=== PATIENT | male | born 1955 | race Caucasian/White ===

== ENCOUNTER → 2019-02-20 21:56 | Outpatient (CLI) | payer MEDICARE ==
[~2019-02-20 21:56] MED LIST: COLESTID1 GM PO; COZAAR100 MG PO; FLOMAX0.4 MG PO; GEMFIBROZIL600 MG PO; GLIMEPIRIDE2 MG PO; GLUCOPHAGE1000 MG PO; METOPROLOL TART50 MG PO; NEURONTIN 300300 MG PO; NORVASC5 MG PO; OMEPRAZOLE20 M1 PO
[2019-02-28 07:02] VITALS: BMI 314.1
== END | disposition home or self-care (01) ==
LOC: D.LABREF 21:56
PROVIDERS: ATTEND Urology
DX: D72.829 Elevated white blood cell count, unspecified (principal)

== ENCOUNTER 2019-02-28 06:12 | Day surgery (SDC) | payer MEDICARE, OTHER ==
[2019-02-26 12:21] LABS: HEMATOCRIT 41.5 % (42.0-54.0); HEMOGLOBIN 14.3 g/dL (13.5-17.5); MCH 30.1 pg (26.0-34.0); MCHC 34.5 g/dL (31.0-37.0); MCV 87.4 fL (80.0-100.0); RBC 4.75 10x6/uL (4.20-6.10); RDW 13.1 % (11.5-14.5); WBC 5.3 10x3/uL (4.8-10.8)
[2019-02-26 12:33] LABS: ANION GAP 16.4 mmol/L (8-16); CARBON DIOXIDE 22.9 mmol/L (21.0-32.0); CREATININE - SERUM 1.1 mg/dL (0.6-1.3); POTASSIUM - SERUM 4.3 mmol/L (3.5-5.1)
[~2019-02-28] VITALS: Ht 170.2 cm; Wt 90.7 kg
[2019-02-28 07:02] VITALS: BP 140/91; Ht 170.2 cm; Wt 90.7 kg
--- NOTE | 2019-02-28 10:15 | NUR ---
REC'D FROM SURGERY. FAMILY AT BEDSIDE. WANTS TO GO AND URINATE. ASSISTED TO THE BATHROOM.
--- NOTE | 2019-02-28 10:45 | NUR ---
STILL IN THE BATHROOM. BLOOD IN THE TOILET HOWEVER RELATES HE REALLY NEEDS TO GO BUT DOES NOT FEEL HE URINATED.
--- NOTE | 2019-02-28 11:05 | OP ---
PATIENT NAME: KENNETH KINGSLEY MEDICAL RECORD: [id number] :51 LOCATION:D.[facility] ADMISSION DATE: SURGEON: CLAUDY RODRIGUES MD DATE OF OPERATION: 02/28/2019 SURGEON: Claudy Rodrigues MD ANESTHESIA: TIVA by Ander Santos CRNA. DIAGNOSIS: Obstructive benign prostatic hyperplasia. PSA is 2.4, EDY shows a 40 gram prostate. IPSS is 23. Quality of life score is 6 on tamsulosin. PROCEDURE: UroLift x6 units deployed, 5 held. FINDINGS: Bilateral lateral lobe obstruction. Moderate sized median lobe. Trabeculated bladder without bladder tumors. Single ureteral orifices bilaterally. ESTIMATED BLOOD LOSS: None. CLINICAL HISTORY: This is a 63-year-old male, who has obstructive voiding symptoms for a number of years. He has hesitancy and a slow urinary flow, which is often stop and go. He has to void every 30 minutes and he has nocturia every 1-1/2 hours. He has been on tamsulosin for 5 years and it is not really helping his symptoms. He wishes to have the UroLift procedure done. HE IS ALLERGIC TO OXYCODONE AND SKELAXIN. He was given Ancef control technician to the OR. DESCRIPTION OF PROCEDURE: The patient was given IV sedation. He was then placed into lithotomy position and prepped and draped. The UroLift scope was introduced. He has trilobar hyperplasia with obstruction. The bladder was trabeculated with cellules and diverticula, but no bladder tumors were seen. About 1.5 cm distal to the bladder neck, we placed our first units, one on each side. These were placed at the anterolateral sulcus. Then, at the verumontanum level, we placed one unit on each side. These were placed at the anterolateral sulcus. This resulted in a nice open anterior urethral channel. However, the large median lobe was still creating an obstruction at the bladder neck area. I decided to place a unit coming from the right side to pin it to the left lateral lobe of the prostate. My first attempt to do this resulted in the clip not holding. That unit had to be discarded. A repeat attempt did work and now the bladder neck was wide open. Thus, 6 units were fired and 5 have held. The bladder was left partly full with irrigation fluid. We will have a voiding trial today. I will see him in followup in 1 months' time. TRANSINT:[id number] Voice Confirmation ID: [id number] DOCUMENT ID: [id number] OPERATIVE REPORT [id number] KENNETH KINGSLEY, CLAUDY Alexis MD at 1105 CC: [id number] DICTATION DATE: 02/28/19 1015 PALM AND BACK FORGER: 02/28/19 1059 [id number] [place] [address]
--- NOTE | 2019-02-28 11:15 | NUR ---
FL TRAY BROUGHT TO PT. STILL GOING TO THE BATHROOM WITH NO SUCCESS. C/O PAIN 03/23 TO PENIS.
--- NOTE | 2019-02-28 11:30 | NUR ---
NORCO 5/325MG PO ADMINISTERED PER ORDERS X 1.
--- NOTE | 2019-02-28 12:10 | NUR ---
STILL UNABLE TO VOID. RATES PAIN 6-7/10 AFTER PAIN MED. FLUIDS INFUSING PER PIV.
--- NOTE | 2019-02-28 13:40 | NUR ---
IV DC'D WITH CATHETER INTACT. WRITTEN AND VERBAL DC INST. GIVEN TO PT. VERBALIZED UNDERSTANDING.
--- NOTE | 2019-02-28 13:45 | NUR ---
USING STERILE TECHNIQUE GUO CATHETER 16 FR INSERTED WITH INSTANT RETURN OF BLODDY URINE. PT VERBALIZED IMMEDIATE RELIEF. INSTRUCTIONS FOR CARE OF GUO CATHETER GIVEN TO PT. VERBALIZED UNDERSTANDING.
--- NOTE | 2019-02-28 14:00 | NUR ---
DC'D HOME WITH FAMILY VIA PRIVATE VEHICLE. STABLE AT TIME OF DC.
== END 2019-02-28 14:00 | disposition home or self-care (01) ==
LOC: D.OPS 06:12 → D.PAN 09:00 → D.OPS 11:45
PROVIDERS: Anesthesiology; ATTEND Urology
DX: N40.1 Benign prostatic hyperplasia with lower urinary tract symptoms (principal); N13.8 Other obstructive and reflux uropathy; N32.89 Other specified disorders of bladder; Z01.812 Encounter for preprocedural laboratory examination

== ENCOUNTER → 2019-03-06 22:05 | Outpatient (CLI) | payer MEDICARE, OTHER ==
[2019-02-28 07:02] VITALS: BMI 314.1
== END | disposition home or self-care (01) ==
LOC: D.LABREF 22:05
PROVIDERS: ATTEND Urology
DX: R31.9 Hematuria, unspecified (principal)

== ENCOUNTER 2019-03-19 09:00 | Day surgery (SDC) | payer MEDICARE, OTHER ==
[2019-03-18 13:46] LABS: HEMATOCRIT 41.5 % (42.0-54.0); HEMOGLOBIN 14.1 g/dL (13.5-17.5); MCH 29.8 pg (26.0-34.0); MCV 87.7 fL (80.0-100.0); MEAN PLATELET VOLUME 9.4 fL (7.4-10.4); RBC 4.73 10x6/uL (4.20-6.10); RDW 13.1 % (11.5-14.5); WBC 7.3 10x3/uL (4.8-10.8)
[2019-03-18 14:07] LABS: ANION GAP 16.7 mmol/L (8-16); CALCIUM 9.2 mg/dL (8.5-10.1); CARBON DIOXIDE 24.1 mmol/L (21.0-32.0); CREATININE - SERUM 1.1 mg/dL (0.6-1.3); POTASSIUM - SERUM 4.8 mmol/L (3.5-5.1)
[~2019-03-19] VITALS: Ht 170.2 cm; Wt 88.5 kg
[2019-03-19 10:21] VITALS: BP 121/89; Ht 170.2 cm; Wt 88.5 kg
--- NOTE | 2019-03-19 17:26 | OP ---
PATIENT NAME: KENNETH KINGSLEY MEDICAL RECORD: [id number] :51 LOCATION:D.[facility] ADMISSION DATE: SURGEON: BUSTER RODRIGUES MD DATE OF OPERATION: 03/19/2019 SURGEON: Buster Rodrigues MD ANESTHESIA: General anesthesia by Carolyne Morales CRNA DIAGNOSES: Urinary retention and obstructive BPH. PROCEDURE: Transurethral resection of the prostate. FINDINGS: Obstructive median lobe. Lateral lobes are well retracted by the UroLift devices. SPECIMEN: Prostate resection chips. BLOOD LOSS: Minimal. CLINICAL HISTORY: This is a 63-year-old male with obstructive BPH. He had UroLift times 5 devices implanted about 2 months ago. He has had trouble voiding ever since the procedure was done. During the procedure, I noted obstructive median lobe and I tried to pin it to one side. Eventually, he ended up in urinary retention in the Emergency Room and he was catheterized for 1300 mL. He comes today to have a transurethral resection of the prostate of the most likely obstructing median lobe. HE IS ALLERGIC TO OXYCODONE AND SKELAXIN. He was given Ancef on-call to the OR. DESCRIPTION OF PROCEDURE: The patient was given induction of general anesthesia in supine position. He was then placed into lithotomy position and prepped and draped. A 21-Greek cystoscope was initially used for visualization. There were no penile or urethral strictures. The lateral lobes were retracted, but they do meet in the midline and may be slightly obstructive. The median lobe did come up to create an obstruction. Going into the bladder, there were still some blood clots in the bladder. These were evacuated out using the Ellik evacuator. We then switched to the bipolar resectoscope using normal saline for irrigation. A 24-Greek resection loop with a 26-Greek resectoscope was used. The resectoscope was placed using the obturator. I then resected from the bladder neck to just proximal to the verumontanum. This took away the median lobe and gave a nice smooth channel on the floor of the prostate posteriorly for the urine flow. The lateral lobes moved in a little bit and I had to resect some of the excessive lateral lobe material. Once there was a nice visible channel all the way through the prostatic urethra, I switched to the button electrode and the entire cut surface of the prostate was coagulated using the button electrode. The Ellik evacuator was used one last time to be sure that there were no resection chips left in the bladder. There was no visible arterial or venous bleeding when I looked in the prostatic urethra. The scope was then removed. We inserted a 20-Greek 3-way Alcocer catheter into the bladder. The balloon was inflated with 25 cc of sterile water. Because there was minimal bleeding, the inflow port was capped with a catheter plug. The catheter was put to bag drainage. I will see the patient in follow up in one week's time for a voiding trial. OPERATIVE REPORT [id number] KENNETH KINGSLEY J TRANSINT:[id number] Voice Confirmation ID: [id number] DOCUMENT ID: [id number] BUSTER RODRIGUES MD at 1726 CC: [id number] DICTATION DATE: 03/19/19 1445 ART CONSULTANT: 03/19/19 1707 REG [facility] [address] [place] [address]
== END 2019-03-19 17:45 | disposition home or self-care (01) ==
LOC: D.OPS 09:00 → D.PAN 11:15 → D.OPS 11:45 → D.PAN 11:45 → D.OPS 17:45
PROVIDERS: Anesthesiology; ATTEND Urology
DX: N40.1 Benign prostatic hyperplasia with lower urinary tract symptoms (principal); N13.8 Other obstructive and reflux uropathy; R33.8 Other retention of urine

== ENCOUNTER → 2019-03-29 15:07 | Outpatient (CLI) | payer MEDICARE, OTHER ==
[2019-03-19 10:21] VITALS: BMI 30.6
== END | disposition home or self-care (01) ==
LOC: D.LABREF 15:07
PROVIDERS: ATTEND Urology
DX: R31.9 Hematuria, unspecified (principal); D72.819 Decreased white blood cell count, unspecified

== ENCOUNTER 2019-03-30 13:58 | Emergency (ER) | payer MEDICARE, OTHER ==
[~2019-03-30] VITALS: Ht 170.2 cm; Wt 88.6 kg
[2019-03-30 14:06] VITALS: Ht 170.2 cm; Wt 88.6 kg
[2019-03-30 15:00] LABS: APPEARANCE CLEAR (CLEAR); COLOR YELLOW (YELLOW)
[2019-03-30 15:01] LABS: BILIRUBIN NEGATIVE (NEGATIVE); GLUCOSE NEGATIVE (NEGATIVE); KETONE NEGATIVE (NEGATIVE); NITRITE NEGATIVE (NEGATIVE); PROTEIN NEGATIVE (NEGATIVE); RED CELLS - URINE 0-5 /hpf (0-5); SPECIFIC GRAVITY 1.015 (1.005-1.020); UROBILINOGEN NORMAL (NORMAL); WHITE CELLS - URINE NSEEN /hpf (0-5)
[2019-03-30 15:43] VITALS: BP 122/82
== END 2019-03-30 15:44 | disposition home or self-care (01) ==
LOC: D.ER 13:58
PROVIDERS: Family Medicine
DX: N40.1 Benign prostatic hyperplasia with lower urinary tract symptoms (principal); R33.8 Other retention of urine

== ENCOUNTER → 2019-05-03 17:05 | Outpatient (CLI) | payer MEDICARE, OTHER ==
[2019-03-30 14:06] VITALS: BMI 30.6
== END | disposition home or self-care (01) ==
LOC: D.LABREF 17:05
PROVIDERS: ATTEND Urology
DX: R31.9 Hematuria, unspecified (principal); D72.819 Decreased white blood cell count, unspecified